=== PATIENT | male | born 1995 | race Hispanic/Latino ===

== ENCOUNTER 2022-01-27 22:26 | Emergency (ER) | payer OTHER ==
[~2022-01-27] VITALS: Ht 167.6 cm; Wt 72.6 kg
[2022-01-27 22:27] VITALS: BP 117/69
[2022-01-27] MEDS ORDERED: FAMOTIDINE 20MG TAB PO ONE (23:00)
[2022-01-27] MEDS ORDERED: DIPHENHYDRAMINE HCL 25 MG CAPSULE PO ONE (23:00)
[2022-01-27] MEDS ORDERED: SOLU-MEDROL 125MG VIAL IM ONE (23:00)
[2022-01-27] MEDS ORDERED: CEPH500B PO (23:14)
[2022-01-27] MEDS ORDERED: PRED20TA3 PO (23:14)
[2022-01-27] MEDS ORDERED: FAMO-136 PO (23:14)
[2022-01-27] MEDS ORDERED: CETI1SOL17 PO (23:14)
[2022-01-27] MEDS ORDERED: EPIN0.3P3 IJ (23:14)
[2022-01-27] MEDS ORDERED: CEPHALEXIN 500 MG CAPSULE PO ONE (23:30)
== END 2022-01-27 23:22 | disposition home or self-care (01) ==
LOC: EDH 22:34
DX: T78.3XXA Angioneurotic edema, initial encounter (principal); S60.562A Insect bite (nonvenomous) of left hand, initial encounter; L03.114 Cellulitis of left upper limb; W57.XXXA Bitten or stung by nonvenomous insect and other nonvenomous arthropods, initial encounter; Z79.52 Long term (current) use of systemic steroids; Y93.89 Activity, other specified; Y92.89 Other specified places as the place of occurrence of the external cause; Y99.8 Other external cause status
CPT/HCPCS: 99283; 96374; Q0163; J2930